=== PATIENT | male | born 1970 | race Caucasian/White ===

== ENCOUNTER → 2018-04-03 | Outpatient (REF) | payer OTHER ==
[2018-04-03 11:17] LABS: BASO # 0.1 10^3/uL (0.0-0.2); BASO % 0.7 % (0.0-1.0); EOS # 0.2 10^3/uL (0.0-0.50); EOS % 2.1 % (0.0-3.0); HEMATOCRIT 47.5 % (42.0-52.0); HEMOGLOBIN 15.5 g/dl (13.5-17.5); IMMATURE GRANULOCYTE # 0.1 10^3/uL (0-0); IMMATURE GRANULOCYTE % 0.6 % (0-3.0); LYMPH # 2.8 10^3/uL (1.5-4.5); LYMPH % 29.3 % (24.0-44.0); MEAN CORPUSCULAR HEMOGLOBIN 31.6 pg (27.0-33.0); MEAN CORPUSCULAR HGB CONC 32.6 g/dl (32.0-36.5); MEAN CORPUSCULAR VOLUME 96.7 fl (80.0-96.0); MONO # 0.7 10^3/uL (0.0-0.8); MONO % 7.8 % (0.0-5.0); NEUTROPHILS # 5.6 10^3/uL (1.8-7.7); NEUTROPHILS % 59.5 % (36.0-66.0); PLATELET COUNT, AUTOMATED 223 10^3/uL (150-450); RED BLOOD COUNT 4.91 10^6/uL (4.30-6.10); RED CELL DISTRIBUTION WIDTH 13.7 % (11.5-14.5); WHITE BLOOD COUNT 9.4 10^3/uL (4.0-10.0)
[2018-04-03 11:25] LABS: ESTIMATED AVERAGE GLUCOSE 123 MG/DL (60-110); HEMOGLOBIN A1c 5.9 %
[2018-04-03 11:46] LABS: ALBUMIN 4.2 GM/DL (3.2-5.2); ALBUMIN/GLOBULIN RATIO 1.17 (1.00-1.93); ALKALINE PHOSPHATASE 78 U/L (45-117); ALT/SGPT 24 U/L (12-78); ANION GAP 9 MEQ/L (8-16); AST/SGOT 19 U/L (7-37); BILIRUBIN,TOTAL 1.2 MG/DL (0.2-1.0); BLOOD UREA NITROGEN 16 MG/DL (7-18); CALCIUM LEVEL 8.9 MG/DL (8.5-10.1); CARBON DIOXIDE LEVEL 28 MEQ/L (21-32); CHLORIDE LEVEL 104 MEQ/L (98-107); CREATININE FOR GFR 0.79 MG/DL (0.70-1.30); GLOMERULAR FILTRATION RATE > 60.0 (>60); GLUCOSE, FASTING 89 MG/DL (70-100); SODIUM LEVEL 141 MEQ/L (136-145); TOTAL PROTEIN 7.8 GM/DL (6.4-8.2); TROPONIN I < 0.02 NG/ML (< 0.10)
[2018-04-03 16:26] LABS: TOTAL 25(OH) VITAMIN D 36.3 NG/ML (30.0-100.0)
== END ==
LOC: M LABDRAW1 10:49
DX: F41.0 Panic disorder [episodic paroxysmal anxiety] (principal)

== ENCOUNTER → 2019-01-04 | Outpatient (CLI) | payer OTHER ==
--- NOTE | 2019-01-04 09:24 | REP ---
CT chest without contrast: History: Other nonspecific abnormal finding of the lung field. Unspecified dyspnea. No comparison chest CT. Comparison is made with chest x-ray, the most recent of these is from September 16, 2013. CT findings: Digital preliminary speeder tender radiograph is unremarkable. No infiltrate is seen in the lung bates. No pulmonary mass lesion or significant pulmonary nodule is appreciated. There are mild emphysematous changes in the upper lobes bilaterally. There is no pleural or pericardial effusions seen. No hilar or mediastinal mass or adenopathy is observed on this noncontrast CT. There are scattered normal-sized mediastinal lymph nodes. No adrenal lesion is seen. The visualized upper abdominal structures are unremarkable. No acute bony abnormality is seen. Impression: Mild bilateral upper lobe emphysematous changes. Otherwise no active disease. Electronically Signed by Jeramie Urbina MD 01/04/2019 03:53 P
== END ==
LOC: M RAD 06:46
PROVIDERS: ATTEND Nurse Practitioner Family
DX: R91.8 Other nonspecific abnormal finding of lung field (principal); R06.00 Dyspnea, unspecified

== ENCOUNTER → 2019-06-18 | Outpatient (CLI) | payer OTHER ==
--- NOTE | 2019-06-19 01:50 | REP ---
Clinical: Shortness of breath . Comparison: 09/16/2013 . Technique: PA and lateral. Findings: The mediastinum and cardiac silhouette are normal. The lung bates are clear and without acute consolidation, effusion, or pneumothorax. The skeletal structures are intact and normal. Impression: 1. No acute cardiopulmonary process. Electronically Signed by Jesus Harp MD 06/19/2019 01:41 A
== END ==
LOC: M LRY 16:46
PROVIDERS: ATTEND Nurse Practitioner Adult Health
DX: J06.9 Acute upper respiratory infection, unspecified (principal); J43.9 Emphysema, unspecified; R06.02 Shortness of breath

== ENCOUNTER → 2021-11-25 | Outpatient (CLI) | payer OTHER | LOC: M PLAIMG 10:11 | PROVIDERS: ATTEND Nurse Practitioner Family | DX: F17.210 Nicotine dependence, cigarettes, uncomplicated (principal); Z86.16 Personal history of COVID-19; R06.00 Dyspnea, unspecified ==

== ENCOUNTER → 2022-01-17 | Outpatient (CLI) | payer OTHER | LOC: M SLEEP HO 09:39 | PROVIDERS: ATTEND Nurse Practitioner Family | DX: R06.83 Snoring (principal) ==

== ENCOUNTER → 2023-01-06 | Outpatient (CLI) | payer OTHER | LOC: M RAD 06:26 | PROVIDERS: ATTEND Nurse Practitioner Family | DX: Z87.891 Personal history of nicotine dependence (principal) ==

== ENCOUNTER → 2023-06-06 | Outpatient (REF) | payer OTHER | LOC: M SFHCDERM 12:55 | PROVIDERS: ATTEND Nurse Practitioner Family | DX: C44.619 Basal cell carcinoma of skin of left upper limb, including shoulder (principal) ==

== ENCOUNTER → 2023-06-20 | Outpatient (REF) | payer OTHER | LOC: M LAB REF 16:31 | PROVIDERS: ATTEND Surgery | DX: C44.91 Basal cell carcinoma of skin, unspecified (principal) ==

== ENCOUNTER 2023-10-26 01:24 | Emergency (ER) | payer OTHER ==
[~2023-10-26] VITALS: Ht 175.3 cm; Wt 77.3 kg
[2023-10-26] MEDS ORDERED: CLIN150C17 PO (01:31)
[2023-10-26] MEDS ORDERED: ACET500T15 PO (01:34)
[2023-10-26 03:15] VITALS: TEMP 97.8
[2023-10-26 03:15] LABS: BASO # 0.1 10^3/uL (0.0-0.2); BASO % 0.7 % (0.0-1.0); EOS # 0.2 10^3/uL (0.0-0.5); EOS % 2.7 % (0.0-3.0); HEMATOCRIT 44.9 % (42.0-52.0); LYMPH # 2.9 10^3/uL (1.5-5.0); LYMPH % 33.1 % (24.0-44.0); MEAN CORPUSCULAR HEMOGLOBIN 32.5 pg (27.0-33.0); MEAN CORPUSCULAR HGB CONC 33.4 g/dl (32.0-36.5); MEAN CORPUSCULAR VOLUME 97.4 fl (80.0-96.0); MONO # 0.7 10^3/uL (0.0-0.8); MONO % 7.5 % (2.0-8.0); NEUTROPHILS # 4.9 10^3/uL (1.5-8.5); NEUTROPHILS % 55.7 % (36.0-66.0); PLATELET COUNT, AUTOMATED 188 10^3/uL (150-450); RED BLOOD COUNT 4.61 10^6/uL (4.30-6.10); WHITE BLOOD COUNT 8.8 10^3/uL (4.0-10.0)
[2023-10-26 03:46] LABS: C REACTIVE PROTEIN QUANTITATIV < 0.40 MG/DL (<1.0)
[2023-10-26 03:47] LABS: BLOOD UREA NITROGEN 15 MG/DL (9-23); CALCIUM LEVEL 8.9 MG/DL (8.5-10.1); CARBON DIOXIDE LEVEL 27 MMOL/L (20-31); CHLORIDE LEVEL 110 MMOL/L (98-107); CREATININE FOR GFR 0.69 MG/DL (0.70-1.30); GLOMERULAR FILTRATION RATE > 60.0 (>56); GLUCOSE, FASTING 97 MG/DL (60-100); POTASSIUM SERUM 4.3 MMOL/L (3.5-5.1); SODIUM LEVEL 140 MMOL/L (136-145)
[2023-10-26] MEDS ORDERED: ISOVUE-370 76% 100ML VIAL As Ordered ONE (03:53)
[2023-10-26 03:54] LABS: PROCALCITONIN 0.04 ng/ml
[2023-10-26] MEDS: cefoTEtan DISODIUM 2 GM in D5W MINI-BAG PLUS 50 ML IV ONE (04:04)
[2023-10-26 04:11] VITALS: BP 135/77; O2SAT 98
== END 2023-10-26 07:12 | disposition home or self-care (01) ==
LOC: M ED 01:24
DX: K04.7 Periapical abscess without sinus (principal); F17.210 Nicotine dependence, cigarettes, uncomplicated; Z88.0 Allergy status to penicillin; Z88.2 Allergy status to sulfonamides; Z88.8 Allergy status to other drugs, medicaments and biological substances; Z79.1 Long term (current) use of non-steroidal anti-inflammatories (NSAID); Z79.2 Long term (current) use of antibiotics
CPT/HCPCS: 70487; 80048; 83605; 84145; 85025; 86140; 87040; 96374; 99284; Q9967; S0074

== ENCOUNTER → 2024-04-03 | Outpatient (CLI) | payer OTHER ==
[~2024-04-03] MED LIST: ACET500T15 PO; CLIN150C17 PO
== END ==
LOC: M RAD 07:57
PROVIDERS: ATTEND Nurse Practitioner Family
DX: Z87.891 Personal history of nicotine dependence (principal)

== ENCOUNTER → 2025-04-28 | Outpatient (CLI) | payer OTHER | LOC: M RAD 08:23 | PROVIDERS: ATTEND Internal Medicine Pulmonary Disease | DX: Z87.891 Personal history of nicotine dependence (principal) ==